=== PATIENT | female | born 1955 | race Caucasian/White ===

== ENCOUNTER 2020-06-17 08:24 | Outpatient (CLI) | payer BC, SELFPAY ==
[2020-06-17 08:56] LABS: Hemoglobin A1C 6.4 % (<5.7)
[2020-06-17 08:57] LABS: Alanine Aminotransferase 22 U/L (4-35); Albumin Level 4.1 g/dL (3.5-5.1); Alkaline Phosphatase 109 U/L (38-126); Anion Gap 6 mmol/L (8-16); Aspartate Amino Transferase 26 U/L (14-36); Bilirubin,Total 0.6 mg/dL (0.2-1.3); Blood Urea Nitrogen 25 mg/dL (7-17); Calcium 9.7 mg/dL (8.4-10.2); Carbon Dioxide 26 mmol/L (22-30); Chloride 105 mmol/L (98-107); Cholesterol 269 mg/dL (0-200); Estimated Glomerular Filt Rate 42; Glucose 142 mg/dL (65-105); HDL Direct 47 mg/dL; Potassium 4.6 mmol/L (3.4-5.0); Sodium 137 mmol/L (137-145); Triglycerides 236 mg/dL (<150)
[2020-06-17 09:08] LABS: LDL Cholesterol Direct 165 mg/dL
== END 2020-06-17 08:25 | disposition home or self-care (01) ==
PROVIDERS: PCP Emergency Medicine; Visit Provider Emergency Medicine
DX: E78.5 Hyperlipidemia, unspecified (principal); E11.9 Type 2 diabetes mellitus without complications
CPT/HCPCS: 36415; 80053; 80061; 83036

== ENCOUNTER 2021-01-28 08:28 | Outpatient (CLI) | payer BC, SELFPAY ==
[2021-01-28 09:18] LABS: Alanine Aminotransferase 18 U/L (4-35); Alkaline Phosphatase 107 U/L (38-126); Anion Gap 7 mmol/L (8-16); Aspartate Amino Transferase 25 U/L (14-36); Bilirubin,Total 0.6 mg/dL (0.2-1.3); Blood Urea Nitrogen 35 mg/dL (7-17); Calcium 9.7 mg/dL (8.4-10.2); Carbon Dioxide 29 mmol/L (22-30); Chloride 105 mmol/L (98-107); Cholesterol 238 mg/dL (0-200); Estimated Glomerular Filt Rate 41; Glucose 151 mg/dL (65-105); HDL Direct 50 mg/dL; Sodium 141 mmol/L (137-145); Triglycerides 169 mg/dL (<150)
[2021-01-28 09:29] LABS: LDL Cholesterol Direct 147 mg/dL
[2021-01-28 09:38] LABS: Hemoglobin A1C 6.8 % (<5.7)
== END 2021-01-28 08:29 | disposition home or self-care (01) ==
PROVIDERS: PCP Emergency Medicine; Visit Provider Emergency Medicine
DX: E78.5 Hyperlipidemia, unspecified (principal); E11.9 Type 2 diabetes mellitus without complications
CPT/HCPCS: 36415; 80053; 80061; 83036

== ENCOUNTER 2022-01-29 09:28 | Outpatient (CLI) | payer BC, SELFPAY ==
[2022-01-29 10:15] LABS: Alanine Aminotransferase 23 U/L (4-35); Albumin Level 4.2 g/dL (3.5-5.1); Alkaline Phosphatase 119 U/L (38-126); Anion Gap 9 mmol/L (8-16); Aspartate Amino Transferase 29 U/L (14-36); Bilirubin,Total 0.5 mg/dL (0.2-1.3); Blood Urea Nitrogen 26 mg/dL (7-17); Calcium 9.4 mg/dL (8.4-10.2); Carbon Dioxide 23 mmol/L (22-30); Chloride 107 mmol/L (98-107); Cholesterol 235 mg/dL (0-200); Estimated Glomerular Filt Rate 45; Glucose 156 mg/dL (65-110); HDL Direct 47 mg/dL; Potassium 4.3 mmol/L (3.4-5.0); Sodium 139 mmol/L (137-145); Triglycerides 172 mg/dL (<150)
[2022-01-29 10:18] LABS: Hemoglobin A1C 6.7 % (<5.7)
[2022-01-29 10:26] LABS: LDL Cholesterol Direct 135 mg/dL
== END 2022-01-29 09:29 | disposition home or self-care (01) ==
LOC: ANHLAB 09:30
PROVIDERS: PCP Emergency Medicine; Visit Provider Emergency Medicine
DX: E78.2 Mixed hyperlipidemia (principal); E11.9 Type 2 diabetes mellitus without complications; I10 Essential (primary) hypertension
CPT/HCPCS: 36415; 80053; 80061; 83036

== ENCOUNTER 2022-02-02 13:20 | Outpatient (NON) | payer BC, SELFPAY ==
[2022-02-02 14:40] LABS: Creatinine Urine 41.6 mg/dL
[2022-02-02 15:09] LABS: Microalbumin Urine Random < 6.0 mg/L (0-16.7)
[2022-02-02 15:10] LABS: MALB Creatinine Ratio < 14.4 mg/g (0-30)
== END 2022-02-02 13:21 | disposition home or self-care (01) ==
LOC: ANHLAB 13:23
PROVIDERS: PCP Emergency Medicine; Visit Provider Emergency Medicine
DX: E11.9 Type 2 diabetes mellitus without complications (principal)
CPT/HCPCS: 82043

== ENCOUNTER 2023-01-15 11:39 | Outpatient (CLI) | payer MEDICARE, MEDICAID, SELFPAY ==
--- NOTE | ~2023-01-15 | XR_ITS ---
Right Knee Technique: AP, lateral, and sunrise views were obtained. Clinical History: Pain Findings: No fracture or dislocation is seen. Osseous alignment is anatomic. Mild tricompartmental sp urring noted, worst at the medial joint line and patella. Soft tissues are unremarkable. No joint eff usion is seen. Impression: Degenerative change, as above. Reviewed, dictated and finalized at location . Impression: Degenerative change, as above.
== END 2023-01-15 11:40 | disposition home or self-care (01) ==
PROVIDERS: PCP Emergency Medicine; Visit Provider Emergency Medicine
DX: M25.561 Pain in right knee (principal)
CPT/HCPCS: 73560

== ENCOUNTER 2023-09-23 08:12 | Outpatient (CLI) | payer MEDICARE, SELFPAY ==
[2023-09-23 09:11] LABS: Hemoglobin A1C 6.4 % (<5.7)
[2023-09-23 09:15] LABS: Alanine Aminotransferase 18 U/L (6-35); Albumin Level 3.8 g/dL (3.5-5.1); Alkaline Phosphatase 130 U/L (38-126); Anion Gap 10 mmol/L (8-16); Aspartate Amino Transferase 23 U/L (14-36); Bilirubin,Total 0.8 mg/dL (0.2-1.3); Blood Urea Nitrogen 39 mg/dL (7-17); Calcium 9.9 mg/dL (8.4-10.2); Carbon Dioxide 24 mmol/L (22-30); Chloride 108 mmol/L (98-107); Cholesterol 235 mg/dL (0-200); Estimated Glomerular Filt Rate 35; Glucose 148 mg/dL (65-110); HDL Direct 47 mg/dL; Potassium 3.7 mmol/L (3.4-5.0); Sodium 142 mmol/L (137-145); Triglycerides 150 mg/dL (<150)
[2023-09-23 09:26] LABS: LDL Cholesterol Direct 130 mg/dL
== END 2023-09-23 08:13 | disposition home or self-care (01) ==
PROVIDERS: PCP Emergency Medicine; Visit Provider Emergency Medicine
DX: E78.5 Hyperlipidemia, unspecified (principal); E11.9 Type 2 diabetes mellitus without complications
CPT/HCPCS: 36415; 80053; 80061; 83036